=== PATIENT | male | born 1985 ===

== ENCOUNTER → 2017-05-23 | Day surgery (SDC) | payer BC, SELFPAY ==
[~2017-05-23] MED LIST: Acetaminophen/HYDROcodone 325-5 MG Tab PO PRN; Bupivacaine 0.5% 30 ML SDV ONE; Dexamethasone 4 MG/ML 5 ML MDV ONE; Diatrizoate Meglumine/Diatrizoate Sodium 37% 120 ML Bottle PO ONE; Glycopyrrolate 0.2 MG/ML SDV ONE; HYDROmorphone 0.5 MG/0.5 ML Syringe IVPUSH ONE; HYDROmorphone 0.5 MG/0.5 ML Syringe IVPUSH PRN; HYDROmorphone 1 MG/ML Syringe ONE; Iopamidol 612 MG/ML 150 ML Bottle IVPUSH ONE; Ketorolac 30 MG/ML SDV ONE; Labetalol 100 MG/20 ML MDV ONE; Lactated Ringers 2,000 ML ONE; Lidocaine 1% 4 ML ONE; Midazolam 1 MG/ML 2 ML SDV ONE; Neostigmine Methylsulfate 10 MG/10 ML MDV ONE; Ondansetron 4 MG/2 ML SDV IVPUSH ONE; Ondansetron 4 MG/2 ML SDV IVPUSH PRN; Ondansetron 4 MG/2 ML SDV ONE; Phenylephrine 1 MG in Sodium Chloride 0.9% 10 ML IV SCH; Phenylephrine 1% 10 MG/ML SDV ONE; Propofol 200 MG/20 ML SDV ONE; Rocuronium 50 MG/5 ML Vial ONE; Sodium Chloride 0.9% 1,000 ML IV ONE; Sodium Chloride 0.9% 1,000 ML IV SCH; Sodium Chloride 0.9% 10 ML Syringe FLUSH PRN; Succinylcholine 200 MG/10 ML MDV ONE; cefOXitin 2 GM in Premix Bag 1 BAG IV ONE; cefOXitin 2 GM in Sodium Chloride 0.9% 100 ML IV ONE; diphenhydrAMINE 50 MG/ML SDV IVPUSH PRN; fentaNYL 100 MCG/2 ML SDV IVPUSH PRN; fentaNYL 250 MCG/5 ML SDV ONE; metroNIDAZOLE/Normal Saline 500 MG in Premix Bag 1 BAG IV ONE
--- NOTE | 2017-05-23 18:59 | EDM.PDOC ---
ED HPI GENERAL MEDICAL PROBLEM - General Chief Complaint: Abdominal Pain Stated Complaint: R SIDE ABDOMINAL PAIN Time Seen by Provider: 05/23/17 18:45 Source of Information: Reports: Patient History Limitations: Reports: No Limitations - History of Present Illness INITIAL COMMENTS - FREE TEXT/NARRATIVE: Patient is a 31-year-old male who presents to the ED complaining of right- sided abdominal pain. States this started abruptly while sitting in a chair at work earlier this afternoon. Described as a dull achy sensation that is constant worsen with movement, taking a deep breath, and palpation. He has had similar symptoms 2 years ago that was related to food poisoning. Patient denies any recent ingestions of bad or questionable food. Denies recent out of country travel. No recent sick exposures. There is no diarrhea. He has no nausea or vomiting. States he has increased flatulence. BM's have been normal. Last one was approximately 1630 this afternoon described as being soft formed with no blood present. He has no pain with urination. Patient admits to having acid reflux yesterday described as quite severe. Denies any Complaints today. No fever, history of kidney stones, dysuria, or any additional complaints. Past medical history positive for hypertension. Current medications none stated. Surgical history none stated. Patient denies smoking history. Alcohol use is rare. Recreational drug none stated. PCP is Eli Ellison. Right Abdominal Pain Score (Numeric/FACES): 7 - Related Data Allergies Allergy/AdvReac Type Severity Reaction Status Date / Time cetirizine [From [facility]] Allergy Hives Verified 05/23/17 18:21 Home Meds: Home Meds . [No Known Home Meds] 05/23/17 [History] Past Medical History - Past Health History Medical/Surgical History: Denies Medical/Surgical History - Infectious Disease History Infectious Disease History: Reports: Shingles Social & Family History - Tobacco Use Smoking Status *Q: Never Smoker - Caffeine Use Caffeine Use: Reports: Energy Drinks - Alcohol Use Days Per Week of Alcohol Use: 1 (Occasional use) - Recreational Drug Use Recreational Drug Use: No ED ROS GENERAL - Review of Systems Review Of Systems: See Below Constitutional: Denies: Fever, Chills, Decreased Appetite HEENT: Reports: No Symptoms Respiratory: Reports: No Symptoms Cardiovascular: Reports: No Symptoms GI/Abdominal: Reports: Abdominal Pain, Distension, Flatus. Denies: Constipation , Diarrhea, Nausea, Vomiting : Reports: No Symptoms Musculoskeletal: Reports: No Symptoms Neurological: Reports: No Symptoms ED EXAM, GI/ABD - Physical Exam Exam: See Below Exam Limited By: No Limitations General Appearance: Alert, WD/WN, No Apparent Distress Ears: Hearing Grossly Normal Nose: Normal Inspection Throat/Mouth: Normal Voice, No Airway Compromise Neck: Normal Inspection, Supple Respiratory/Chest: No Respiratory Distress, Lungs Clear, Normal Breath Sounds, No Accessory Muscle Use, Chest Non-Tender Cardiovascular: Normal Peripheral Pulses, Regular Rate, Rhythm GI/Abdominal Exam: Tender (Right Upper/lower quadrant), Abnormal Bowel Sounds ( hyperactive), Other (No husain sign or mcburneys point. ) (Male) Exam: Deferred (no complaints) Rectal (Males) Exam: Deferred (no complaints. ) Back Exam: Normal Inspection Neurological: Alert, Oriented, CN II-XII Intact, Normal Cognition, No Motor/ Sensory Deficits Psychiatric: Normal Affect, Normal Mood Skin Exam: Warm, Dry, Intact, Normal Color Course - Vital Signs Last Recorded V/S: Last Vital Signs Temp 97.5 F 05/23/17 22:38 Pulse 98 05/23/17 18:18 Resp 18 05/23/17 22:38 BP 166/99 H 05/23/17 22:38 Pulse Ox 99 05/23/17 22:38 - Orders/Labs/Meds Orders: Active Orders 24 hr Category Date Time Status EKG Documentation Completion [RC] STAT Care 05/23/17 22:10 Active Peripheral IV Care [RC] . DIRECTED Care 05/23/17 18:57 Active Verify Patient Consent Obtain [RC] ASDIRECTED Care 05/23/17 22:40 Active Abdomen 2V AP Flat Upright [CR] Stat Exams 05/23/17 18:57 Taken Abdomen Pelvis w Cont [CT] Stat Exams 05/23/17 20:17 Taken CXR [Chest 1V Frontal] [CR] Stat Exams 05/23/17 22:10 Taken INR,PT,PROTHROMBIN TIME [COAG] Stat Lab 05/23/17 22:43 Received PTT,PARTIAL THROMBOPLSTIN TIME [COAG] Stat Lab 05/23/17 22:43 Received TYPE AND SCREEN [BBK] Stat Lab 05/23/17 22:43 Received Sodium Chloride 0.9% [Normal Saline] 1,000 ml Med 05/23/17 20:30 Active IV ASDIRECTED Sodium Chloride 0.9% [Saline Flush] Med 05/23/17 18:56 Active 10 ml FLUSH ASDIRECTED PRN cefOXitin [Mefoxin in Dextrose,Iso-Osm 2 GM/50 ML] 2 gm Med 05/23/17 22:40 Active Premix Bag 1 bag IV ONETIME metroNIDAZOLE/Normal Saline [Flagyl 500 MG in NS 100 ML Med 05/23/17 22:20 Active ] 500 mg Premix Bag 1 bag IV ONETIME Peripheral IV Insertion Adult [OM.PC] Stat Oth 05/23/17 18:57 Ordered Schedule Procedure [COMM] Urgent Oth 05/23/17 22:39 Ordered Medication Orders Sodium Chloride (Normal Saline) 1,000 mls @ 150 mls/hr IV ASDIRECTED JULIANE Last Admin: 05/23/17 20:25 Dose: 150 mls/hr Metronidazole 500 mg/ Premix 100 mls @ 100 mls/hr IV ONETIME ONE Stop: 05/23/17 23:19 Last Admin: 05/23/17 22:30 Dose: 100 mls/hr Cefoxitin Sodium 2 gm/ Premix 50 mls @ 100 mls/hr IV ONETIME ONE Stop: 05/23/17 23:09 Last Admin: 05/23/17 22:42 Dose: 100 mls/hr Sodium Chloride (Saline Flush) 10 ml FLUSH ASDIRECTED PRN PRN Reason: Keep Vein Open Last Admin: 05/23/17 19:10 Dose: 10 ml Labs: Laboratory Tests 05/23/17 05/23/17 05/23/17 Range/Units 19:48 19:48 19:53 WBC 20.77 H (4.23-9.07) K/mm3 RBC 4.97 (4.63-6.08) M/mm3 Hgb 15.7 (13.7-17.5) gm/L Hct 43.3 (40.1-51.0) % MCV 87.1 (79.0-92.2) fl MCH 31.6 (25.7-32.2) pg MCHC 36.3 H (32.2-35.5) g/dl RDW Std Deviation 37.8 (35.1-43.9) fL Plt Count 95 L (163-337) K/mm3 MPV 11.3 (9.4-12.3) fl Neut % (Auto) 81.3 H (34.0-67.9) % Lymph % (Auto) 5.8 L (21.8-53.1) % [place] % (Auto) 11.5 (5.3-12.2) % Eos % (Auto) 0.9 (0.8-7.0) Baso % (Auto) 0.2 (0.1-1.2) % Neut # (Auto) 16.89 H (1.78-5.38) K/mm3 Lymph # (Auto) 1.21 L (1.32-3.57) K/mm3 [place] # (Auto) 2.38 H (0.30-0.82) K/mm3 Eos # (Auto) 0.18 (0.04-0.54) K/mm3 Baso # (Auto) 0.05 (0.01-0.08) K/mm3 Manual Slide Review Abnormal smear Sodium 140 (136-145) mEq/L Potassium 4.3 (3.5-5.1) mEq/L Chloride 103 (98-107) mEq/L Carbon Dioxide 29 (21-32) mEq/L Anion Gap 12.3 (5-15) BUN 12 (7-18) mg/dL Creatinine 1.0 (0.7-1.3) mg/dL Est Cr Clr Drug Dosing 124.44 mL/min Estimated GFR (MDRD) > 60 (>60) mL/min BUN/Creatinine Ratio 12.0 L (14-18) Glucose 154 H (74-106) mg/dL Calcium 9.0 (8.5-10.1) mg/dL Total Bilirubin 0.8 (0.2-1.0) mg/dL AST 32 (15-37) U/L ALT 55 (16-63) U/L Alkaline Phosphatase 57 (46-116) U/L C-Reactive Protein 2.0 H* (<1.0) mg/dL Total Protein 7.6 (6.4-8.2) g/dl Albumin 4.0 (3.4-5.0) g/dl Globulin 3.6 gm/dL Albumin/Globulin Ratio 1.1 (1-2) Lipase 103 (73-393) U/L Urine Color Yellow (Yellow) Urine Appearance Clear (Clear) Urine pH 7.5 (5.0-8.0) Ur Specific [place] 1.020 (1.005-1.030) Urine Protein Negative (Negative) Urine Glucose (UA) Negative (Negative) Urine Ketones Negative (Negative) Urine Occult Blood Negative (Negative) Urine Nitrite Negative (Negative) Urine Bilirubin Negative (Negative) Urine Urobilinogen 1.0 (0.2-1.0) Ur Leukocyte Esterase Negative (Negative) Urine RBC Not seen (0-5) /hpf Urine WBC 0-5 (0-5) /hpf Ur Epithelial Cells Not seen (0-5) /hpf Urine Bacteria Not seen (FEW) /hpf Urine Mucus Not seen (FEW) /hpf Meds: Medications Generic Name Dose Route Start Last Admin Trade Name Vijay PRN Reason Stop Dose Admin Sodium Chloride 1,000 mls @ 150 mls/hr 05/23/17 20:30 05/23/17 20:25 Normal Saline IV 150 mls/hr ASDIRECTED JULIANE Administration Metronidazole 500 mg/ Premix 100 mls @ 100 mls/hr 05/23/17 22:20 05/23/17 22: 30 IV 05/23/17 23:19 100 mls/hr ONETIME ONE Administration Cefoxitin Sodium 2 gm/ Premix 50 mls @ 100 mls/hr 05/23/17 22:40 05/23/17 22: 42 IV 05/23/17 23:09 100 mls/hr ONETIME ONE Administration Sodium Chloride 10 ml 05/23/17 18:56 05/23/17 19:10 Saline Flush FLUSH 10 ml ASDIRECTED PRN Administration Keep Vein Open Discontinued Medications Generic Name Dose Route Start Last Admin Trade Name Vijay PRN Reason Stop Dose Admin Bupivacaine HCl Confirm 05/23/17 22:45 Marcaine 0.5% Administered 05/23/17 22:46 Dose 30 ml .ROUTE .STK-MED ONE Diatrizoate Meglum/Diatrizoate Sod 90 ml 05/23/17 21:35 05/23/17 21:49 Gastrografin 37% PO 05/23/17 21:36 90 ml ONETIME ONE Administration Hydromorphone HCl 0.5 mg 05/23/17 18:57 05/23/17 19:11 Dilaudid IVPUSH 05/23/17 18:58 0.5 mg ONETIME ONE Administration Sodium Chloride 1,000 mls @ 999 mls/hr 05/23/17 18:57 05/23/17 19:09 Normal Saline IV 05/23/17 19:57 999 mls/hr ONETIME ONE Administration Cefoxitin Sodium 2 gm/ Sodium 100 mls @ 200 mls/hr 05/23/17 22:20 05/23/17 22 :55 Chloride IV 05/23/17 22:49 Not Given ONETIME ONE Cefoxitin Sodium Confirm 05/23/17 22:40 05/23/17 22:40 Mefoxin In Dextrose,Iso-Osm 2 Gm/50 Ml Administered 05/23/17 22:41 Not Given Dose 50 mls @ as directed .ROUTE .STK-MED ONE Iopamidol 125 ml 05/23/17 21:35 05/23/17 21:49 Isovue-300 (61%) IVPUSH 05/23/17 21:36 125 ml ONETIME ONE Administration Ondansetron HCl 4 mg 05/23/17 18:57 05/23/17 19:09 Zofran IVPUSH 05/23/17 18:58 4 mg ONETIME ONE Administration - Re-Assessments/Exams Free Text/Narrative Re-Assessment/Exam: IV established with normal saline, Dilaudid 0.5 mg IVP, and Zofran 4 mg IVP. Initial labs and studies include CBC, chem 14, lipase, UA , two-view of the abdomen, and CRP. 05/23/17 20:29 X-ray of the abdomen revealed non specific stool and air patterns. Labs reviewed: White blood cell count 20.77, hemoglobin 15.7, platelet count 95 , neutrophil percentage is 81.3, neutrophil #16.89, sodium 140, potassium 4.3, AG 12.3, creatinine 1.0, glucose 154, LFTs within normal limits, CRP 2.0, lipase 103, UA negative for infection. CT the abdomen and pelvis with IV and oral contrast ordered. Patient was placed on nothing by mouth status medications only. 2205 [facility] called: Patient has acute appendicitis. Last meal 1530 today. [address] Dudley installation coordinator General Surgeon. WIll see the patient in the E.D. OR staff notified. Request flagyl 500mg IV and cefoxitin 2 gram IV. 05/23/17 22:19 05/23/17 22:32 EKG sinus tachycardia at a rate of 109 with a MI interval 138. QTC is 484. No acute ST changes noted. Chest x-ray revealed: Normal chest x-ray. Final interpretation is pending. Departure - Departure Time of Disposition: 22:22 Disposition: DC/Tfer to [facility] Condition: Fair Clinical Impression: Appendicitis Qualifiers: Appendicitis type: acute appendicitis Acute appendicitis type: unspecified acute appendicitis type Qualified Code(s): K35.80 - Unspecified acute appendicitis - Discharge Information - My Orders Last 24 Hours: My Active Orders 05/23/17 18:56 Sodium Chloride 0.9% [Saline Flush] 10 ml FLUSH ASDIRECTED PRN 05/23/17 18:57 Peripheral IV Care [RC] . DIRECTED Abdomen 2V AP Flat Upright [CR] Stat Peripheral IV Insertion Adult [OM.PC] Stat 05/23/17 20:17 Abdomen Pelvis w Cont [CT] Stat 05/23/17 20:30 Sodium Chloride 0.9% [Normal Saline] 1,000 ml IV ASDIRECTED 05/23/17 22:10 EKG Documentation Completion [RC] STAT CXR [Chest 1V Frontal] [CR] Stat 05/23/17 22:20 metroNIDAZOLE/Normal Saline [Flagyl 500 MG in NS 100 ML] 500 mg Premix Bag 1 bag IV ONETIME 05/23/17 22:40 cefOXitin [Mefoxin in Dextrose,Iso-Osm 2 GM/50 ML] 2 gm Premix Bag 1 bag IV ONETIME 05/23/17 22:43 INR,PT,PROTHROMBIN TIME [COAG] Stat PTT,PARTIAL THROMBOPLSTIN TIME [COAG] Stat TYPE AND SCREEN [BBK] Stat - Assessment/Plan Last 24 Hours: My Active Orders 05/23/17 18:56 Sodium Chloride 0.9% [Saline Flush] 10 ml FLUSH ASDIRECTED PRN 05/23/17 18:57 Peripheral IV Care [RC] . DIRECTED Abdomen 2V AP Flat Upright [CR] Stat Peripheral IV Insertion Adult [OM.PC] Stat 05/23/17 20:17 Abdomen Pelvis w Cont [CT] Stat 05/23/17 20:30 Sodium Chloride 0.9% [Normal Saline] 1,000 ml IV ASDIRECTED 05/23/17 22:10 EKG Documentation Completion [RC] STAT CXR [Chest 1V Frontal] [CR] Stat 05/23/17 22:20 metroNIDAZOLE/Normal Saline [Flagyl 500 MG in NS 100 ML] 500 mg Premix Bag 1 bag IV ONETIME 05/23/17 22:40 cefOXitin [Mefoxin in Dextrose,Iso-Osm 2 GM/50 ML] 2 gm Premix Bag 1 bag IV ONETIME 05/23/17 22:43 INR,PT,PROTHROMBIN TIME [COAG] Stat PTT,PARTIAL THROMBOPLSTIN TIME [COAG] Stat TYPE AND SCREEN [BBK] Stat
--- NOTE | 2017-05-23 22:38 | PCM.PREANE ---
Preanesthetic Assessment - Anesthesia/Transfusion/Family Hx Anesthesia History: Prior Anesthesia Without Reaction Family History of Anesthesia Reaction: No Transfusion History: No Prior Transfusion(s) Intubation History: Unknown - Review of Systems General: Fever, Fatigue, Appetite (Decreased) Pulmonary: No Symptoms Cardiovascular: No Symptoms (History of HTN) Gastrointestinal: No Symptoms (GERD), Difficulty Swallowing Neurological: No Symptoms, Headache (occasionally) Other: Reports: None, Sinus Problem (seasonal allergies) - Physical Assessment NPO Status Date: 05/23/17 NPO Status Time: 21:49 Pulse: 98 O2 Sat by Pulse Oximetry: 99 Respiratory Rate: 18 Blood Pressure: 166/99 Temperature: 36.4 C Vital Signs: Last Vital Signs Temp 36.4 C 05/23/17 18:18 Pulse 98 05/23/17 18:18 Resp 18 05/23/17 18:18 BP 166/99 H 05/23/17 18:18 Pulse Ox 99 05/23/17 18:18 Height: 1.88 m Weight: 149.685 kg ASA Class: 2E Mental Status: Alert & Oriented x3 Airway Class: Mallampati = 3 Dentition: Reports: Normal Dentition, Caries Thyro-Mental Finger Breadths: 3 Mouth Opening Finger Breadths: 2 ROM/Head Extension: Full Lungs: Clear to Auscultation, Normal Respiratory Effort Cardiovascular: Regular Rate, Regular Rhythm, No Murmurs - Lab Values: Laboratory Last Values WBC 20.77 K/mm3 (4.23-9.07) H 05/23/17 19:48 RBC 4.97 M/mm3 (4.63-6.08) 05/23/17 19:48 Hgb 15.7 gm/L (13.7-17.5) 05/23/17 19:48 Hct 43.3 % (40.1-51.0) 05/23/17 19:48 MCV 87.1 fl (79.0-92.2) 05/23/17 19:48 MCH 31.6 pg (25.7-32.2) 05/23/17 19:48 MCHC 36.3 g/dl (32.2-35.5) H 05/23/17 19:48 RDW Std Deviation 37.8 fL (35.1-43.9) 05/23/17 19:48 Plt Count 95 K/mm3 (163-337) L 05/23/17 19:48 MPV 11.3 fl (9.4-12.3) 05/23/17 19:48 Neut % (Auto) 81.3 % (34.0-67.9) H 05/23/17 19:48 Lymph % (Auto) 5.8 % (21.8-53.1) L 05/23/17 19:48 [place] % (Auto) 11.5 % (5.3-12.2) 05/23/17 19:48 Eos % (Auto) 0.9 (0.8-7.0) 05/23/17 19:48 Baso % (Auto) 0.2 % (0.1-1.2) 05/23/17 19:48 Neut # (Auto) 16.89 K/mm3 (1.78-5.38) H 05/23/17 19:48 Lymph # (Auto) 1.21 K/mm3 (1.32-3.57) L 05/23/17 19:48 [place] # (Auto) 2.38 K/mm3 (0.30-0.82) H 05/23/17 19:48 Eos # (Auto) 0.18 K/mm3 (0.04-0.54) 05/23/17 19:48 Baso # (Auto) 0.05 K/mm3 (0.01-0.08) 05/23/17 19:48 Manual Slide Review Abnormal smear 05/23/17 19:48 Sodium 140 mEq/L (136-145) 05/23/17 19:48 Potassium 4.3 mEq/L (3.5-5.1) 05/23/17 19:48 Chloride 103 mEq/L (98-107) 05/23/17 19:48 Carbon Dioxide 29 mEq/L (21-32) 05/23/17 19:48 Anion Gap 12.3 (5-15) 05/23/17 19:48 BUN 12 mg/dL (7-18) 05/23/17 19:48 Creatinine 1.0 mg/dL (0.7-1.3) 05/23/17 19:48 Est Cr Clr Drug Dosing 124.44 mL/min 05/23/17 19:48 Estimated GFR (MDRD) > 60 mL/min (>60) 05/23/17 19:48 BUN/Creatinine Ratio 12.0 (14-18) L 05/23/17 19:48 Glucose 154 mg/dL (74-106) H 05/23/17 19:48 Calcium 9.0 mg/dL (8.5-10.1) 05/23/17 19:48 Total Bilirubin 0.8 mg/dL (0.2-1.0) 05/23/17 19:48 AST 32 U/L (15-37) 05/23/17 19:48 ALT 55 U/L (16-63) 05/23/17 19:48 Alkaline Phosphatase 57 U/L (46-116) 05/23/17 19:48 C-Reactive Protein 2.0 mg/dL (<1.0) H* 05/23/17 19:48 Total Protein 7.6 g/dl (6.4-8.2) 05/23/17 19:48 Albumin 4.0 g/dl (3.4-5.0) 05/23/17 19:48 Globulin 3.6 gm/dL 05/23/17 19:48 Albumin/Globulin Ratio 1.1 (1-2) 05/23/17 19:48 Lipase 103 U/L (73-393) 05/23/17 19:48 Urine Color Yellow (Yellow) 05/23/17 19:53 Urine Appearance Clear (Clear) 05/23/17 19:53 Urine pH 7.5 (5.0-8.0) 05/23/17 19:53 Ur Specific [place] 1.020 (1.005-1.030) 05/23/17 19:53 Urine Protein Negative (Negative) 05/23/17 19:53 Urine Glucose (UA) Negative (Negative) 05/23/17 19:53 Urine Ketones Negative (Negative) 05/23/17 19:53 Urine Occult Blood Negative (Negative) 05/23/17 19:53 Urine Nitrite Negative (Negative) 05/23/17 19:53 Urine Bilirubin Negative (Negative) 05/23/17 19:53 Urine Urobilinogen 1.0 (0.2-1.0) 05/23/17 19:53 Ur Leukocyte Esterase Negative (Negative) 05/23/17 19:53 Urine RBC Not seen /hpf (0-5) 05/23/17 19:53 Urine WBC 0-5 /hpf (0-5) 05/23/17 19:53 Ur Epithelial Cells Not seen /hpf (0-5) 05/23/17 19:53 Urine Bacteria Not seen /hpf (FEW) 05/23/17 19:53 Urine Mucus Not seen /hpf (FEW) 05/23/17 19:53 Above labs reviewed and noted. - Imaging/EKG Impressions: EKG: ST rate= 109, No ischemic changes, Atrial premature complexes, borderline QT interval. - Allergies Allergies/Adverse Reactions: Allergies Allergy/AdvReac Type Severity Reaction Status Date / Time cetirizine [From [facility]] Allergy Hives Verified 05/23/17 18:21 - Anesthesia Plan Pre-Op Medication Ordered: None - Acknowledgements Anesthesia Type Planned: General Anesthesia Pt an Appropriate Candidate for the Planned Anesthesia: Yes Alternatives and Risks of Anesthesia Discussed w Pt/Guardian: Yes Pt/Guardian Understands and Agrees with Anesthesia Plan: Yes PreAnesthesia Questionnaire - Past Health History Medical/Surgical History: Denies Medical/Surgical History - Infectious Disease History Infectious Disease History: Reports: Shingles - SUBSTANCE USE Smoking Status *Q: Never Smoker Days Per Week of Alcohol Use: 1 (Occasional use) Recreational Drug Use History: No - HOME MEDS Home Medications: Home Meds . [No Known Home Meds] 05/23/17 [History] - CURRENT (IN HOUSE) MEDS Current Meds: Current Medications Sodium Chloride (Normal Saline) 1,000 mls @ 150 mls/hr IV ASDIRECTED JULIANE Last Admin: 05/23/17 20:25 Dose: 150 mls/hr Cefoxitin Sodium 2 gm/ Sodium (Chloride) 100 mls @ 200 mls/hr IV ONETIME ONE Stop: 05/23/17 22:49 Metronidazole 500 mg/ Premix 100 mls @ 100 mls/hr IV ONETIME ONE Stop: 05/23/17 23:19 Last Admin: 05/23/17 22:30 Dose: 100 mls/hr Sodium Chloride (Saline Flush) 10 ml FLUSH ASDIRECTED PRN PRN Reason: Keep Vein Open Last Admin: 05/23/17 19:10 Dose: 10 ml Discontinued Medications Diatrizoate Meglum/Diatrizoate Sod (Gastrografin 37%) 90 ml PO ONETIME ONE Stop: 05/23/17 21:36 Last Admin: 05/23/17 21:49 Dose: 90 ml Hydromorphone HCl (Dilaudid) 0.5 mg IVPUSH ONETIME ONE Stop: 05/23/17 18:58 Last Admin: 05/23/17 19:11 Dose: 0.5 mg Sodium Chloride (Normal Saline) 1,000 mls @ 999 mls/hr IV ONETIME ONE Stop: 05/23/17 19:57 Last Admin: 05/23/17 19:09 Dose: 999 mls/hr Iopamidol (Isovue-300 (61%)) 125 ml IVPUSH ONETIME ONE Stop: 05/23/17 21:36 Last Admin: 05/23/17 21:49 Dose: 125 ml Ondansetron HCl (Zofran) 4 mg IVPUSH ONETIME ONE Stop: 05/23/17 18:58 Last Admin: 05/23/17 19:09 Dose: 4 mg
--- NOTE | 2017-05-23 23:30 | HP ---
DATE OF ADMISSION: 05/23/2017 HISTORY OF PRESENT ILLNESS: Ruslan Gruber is a 31-year-old who presented to the ER with pain on the right side. States it started abruptly, was sitting in a chair and around about 11 o'clock, associated with a loss of appetite. No nausea or vomiting. The pain persisted, it would seem to come and go, mainly got worse every time and finally came into the emergency room where a CT scan showed a retrocecal appendix, which was inflamed. PAST MEDICAL HISTORY: Hypertension. He has been taking his high blood pressure medication. SOCIAL HISTORY: Never smoked and no use of alcohol or drugs. REVIEW OF SYSTEMS: No chest pain, shortness of breath, cough, hoarseness, wheezing, fainting, weakness, numbness, or convulsions. LABORATORY DATA: Shows increased white count 22,000. PHYSICAL EXAMINATION: GENERAL: Reveals a temperature 97, pulse 98, respirations 18, blood pressure 166/99. EYES: Sclerae white. Extraocular muscle motion normal. ORAL CAVITY: Healthy mucous membrane with mouth and tongue. NECK: Supple. No nodes. No thyromegaly. Trachea midline. LUNGS: Clear. No rales, rhonchi, fremitus, dullness. Normal breath sounds. HEART: Tones regular rate. No S3, S4, jugular venous distention or murmurs. ABDOMEN: Shows tenderness in broad area in the right lower quadrant just above McBurney's point. Rovsing sign normal. Psoas sign negative. PSYCHIATRIC: Normal. SKIN: Warm and dry. NEUROLOGIC: Oriented x3. III through XII cranial nerves intact. No sensorineural deficit. ASSESSMENT: Acute appendicitis per laparoscopic appendectomy. We will give antibiotics. Discussed the procedure, risks, complications. He understands and consents. MMODAL /[id number]
--- NOTE | 2017-05-24 01:01 | PCM.OPNOTE ---
- General Post-Op/Procedure Note Date of Surgery/Procedure: 05/24/17 Operative Procedure(s): lap appy Findings: retrocecal appendicitis Pre Op Diagnosis: acute appendicitis Post-Op Diagnosis: Same Anesthesia Technique: General ET Tube Primary Surgeon: Salomón Dudley EBL in mLs: 20 Complications: None Condition: Good
--- NOTE | 2017-05-24 01:21 | PCM.POSTAN ---
POST ANESTHESIA ASSESSMENT - MENTAL STATUS Mental Status: Alert, Other (Patient noted to have DRAGAN with desaturation noted when pt. falls asleep. [address]ian nasal airway placed. Dr. Dudley informed of DRAGAN , and suggestion made for patient to stay over night to monitor until more awake.) - VITAL SIGNS Pulse Rate: 87 SaO2: 94 Resp Rate: 16 Blood Pressure: 123/84 Temperature: 37.4 C - RESPIRATORY Respiratory Status: Respiratory Rate WNL, Airway Patent, O2 Saturation Stable, Supplemental Oxygen (and nasal airway to right nare noted.) - CARDIOVASCULAR CV Status: Pulse Rate WNL, Blood Pressure Stable - GASTROINTESTINAL GI Status: No Symptoms - POST OP HYDRATION Hydration Status: Adequate & Stable
[2017-05-24 04:39] VITALS: BP 125/64
--- NOTE | 2017-05-24 08:33 | CR ---
Abdomen: Supine and upright views of the abdomen were obtained. Comparison: No previous abdominal x-ray, previous CT abdomen and pelvis exam of 03/16/14 is available. Small calcification is seen within the pelvis compatible with phlebolith. Bowel gas pattern is normal. No soft tissue abnormality is seen. Bony structures are unremarkable. No free air is seen. Impression: 1. Nothing acute is appreciated on two-view abdominal x-ray. Diagnostic code #1
--- NOTE | 2017-05-24 08:33 | CT ---
CT abdomen and pelvis Technique: Multiple axial sections were obtained from above the dome of the diaphragm inferiorly through the pubic symphysis. Intravenous and oral contrast was utilized. Delayed images were also obtained through the bladder. Findings: Appendix is enlarged and shows surrounding inflammatory change compatible with appendicitis. Appendix ascends to the lower level of the liver. No fluid collections to indicate abscess are seen. Visualized lung bases show nothing acute. Liver shows fatty infiltration. Spleen appears within normal limits. Adrenal glands show no nodule. Kidneys show symmetric contrast enhancement without hydronephrosis or mass. Small lymph nodes are noted within the right lower quadrant which are likely reactive from the patient's appendicitis. Aorta shows no aneurysmal dilatation. No retroperitoneal adenopathy is seen. No pelvic mass or adenopathy is seen. No bowel dilatation is seen. Delayed images show contrast within the distal ureters and within the bladder. Bone window settings were reviewed which appear within normal limits for the patient's age. Impression: 1. Findings compatible with appendicitis. 2. Fatty infiltration within the liver. Diagnostic code #5 Agree with preliminary report issued by [employer] ([employer] preliminary report dictated on 05/23/17, 11:00 PM Central Time)
--- NOTE | 2017-05-24 08:33 | CR ---
Chest: Frontal view of the chest was obtained. Comparison: No prior chest x-ray. Heart size and mediastinum are normal. Lungs are clear. Bony structures are grossly intact. Impression: 1. Nothing acute is identified on frontal chest x-ray. Diagnostic code #1
--- NOTE | 2017-05-24 08:48 | OR ---
DATE OF OPERATION: 05/24/2017 SURGEON: Salomón Dudley MD PREOPERATIVE DIAGNOSIS: Acute appendicitis. POSTOPERATIVE DIAGNOSIS: Acute appendicitis. OPERATION PERFORMED: Laparoscopic appendectomy. FINDINGS: Retrocecal appendix. There was an inflamed appendix with minimal local reaction. The tip of the appendix was located just at the right lobe of the liver. ESTIMATED BLOOD LOSS: About 20 mL. DESCRIPTION OF PROCEDURE: The patient was taken to the operating room and placed in supine position, connected to monitoring equipment and given general anesthetic and intubated. Antibiotics had been given. SCDs were placed. The abdomen was clipped and prepped with chlorhexidine, prepped and draped off in a sterile fashion. Incision was made just below the umbilicus and carried down by sharp dissection to the fascia, which was incised, and then the abdominal cavity entered. Karri trocar was placed and secured with stay sutures. Pneumoperitoneum established. A 5 mm 30-degree camera was inserted and the abdominal cavity scanned showing a retrocecal appendix and dilated cecum. A 5 mm trocar placed in the right upper quadrant and one in the right lower quadrant and the cecum was rotated laterally. The patient was placed in reverse Trendelenburg with leftward tilted. The appendix at the base of the cecum was mobilized. A window was developed and the Endo-ligator placed and the appendix amputated from its attachment to the cecum. Using a knife cautery, the appendix was then dissected out in a retrocecal way of rotating in successive advancement of the cecum medially and putting clips on the bleeders and using electrocautery until the entire appendix was removed. It was then put in an Endobag and removed from the abdominal cavity. Pneumoperitoneum was reestablished. The area was irrigated. Hemostasis checked and secured and there was no bleeding. The appendicular closure was secured. This completed the intraabdominal portion. The pneumoperitoneum was removed and the fascia in the subumbilical port closed with running 0 Vicryl suture. The skin of each ports closed with subdermal 4-0 Dexon suture. Steri-Strips and sterile dressings placed. The patient tolerated the procedure and sent to recovery room in a stable condition. ANESTHESIA: General. MMODAL /[id number]
== END | disposition home or self-care (01) ==
LOC: JD.ED 18:11 → JD.SDS 22:40
PROVIDERS: ATTEND Surgery
DX: K35.3 Acute appendicitis with localized peritonitis (principal); I10 Essential (primary) hypertension; Z79.899 Other long term (current) drug therapy; Z88.8 Allergy status to other drugs, medicaments and biological substances
CPT/HCPCS: 36415; 44970; 71010; 74020; 74177; 80053; 81001; 83690; 85025; 85610; 85730; 86140; 86850; 86900; 86901; 93005; 96361; 96365; 96375; 99285; J0330; J0694; J1100; J1170; J1885; J2250; J2405; J3010; J7040; J7050; J7120; Q9963; Q9967; 00840; 99284; J2704